=== PATIENT | female | born 1985 | race Caucasian/White ===

== ENCOUNTER 2022-08-06 11:44 | Emergency (ER) | payer MEDICAID ==
[~2022-08-06] VITALS: Ht 157.5 cm; Wt 77.3 kg
[2022-08-06 12:16] VITALS: BP 134/78
[2022-08-06] MEDS ORDERED: ketorolac trometh inj. 60 MG/2 ML VIAL IM ONE (15:15)
== END 2022-08-06 15:33 | disposition home or self-care (01) ==
LOC: ER 11:46
DX: G89.29 Other chronic pain (principal); M19.90 Unspecified osteoarthritis, unspecified site; Z88.0 Allergy status to penicillin
CPT/HCPCS: 73130; 73521; 96372; 99284; J1885

== ENCOUNTER 2023-04-21 13:45 | Emergency (ER) | payer MEDICAID ==
[~2023-04-21] VITALS: Ht 160 cm; Wt 84.6 kg
[2023-04-21 14:13] VITALS: BP 132/88; PULSE 82; RESP 16; TEMP 98.8; O2SAT 99
== END 2023-04-21 17:52 | disposition home or self-care (01) ==
LOC: ER 13:45
DX: M25.562 Pain in left knee (principal); Z88.0 Allergy status to penicillin; Z91.018 Allergy to other foods
CPT/HCPCS: 73564; 99283